=== PATIENT | male | born 1970 ===

== ENCOUNTER 2018-08-20 10:56 | Emergency (ER) | payer MEDICAID ==
[2018-08-20 11:01] VITALS: BMI 23.6
[2018-08-20 11:02] VITALS: BP 123/79; PULSE 108; RESP 20; TEMP 98.4; O2SAT 98
--- NOTE | 2018-08-20 12:05 | ED PDOC ---
Upper Extremity Pain/Injury Time Seen by Provider: 08/20/18 11:58 Chief Complaint (Nursing): Finger,Hand,&Wrist Additional Complaint(s): 47 y/o right-handed male with PMH asthma, hepatitis, and depression presents to the ED c/o laceration of L hand that occurred at 2am this morning. Pt reached into his pocket, where his pocket knife was open, and cut the webspace between the 1st and 2nd digits on his left hand. Bleeding was able to be controlled at home with pressure but he is here today because of concern over the depth of the wound. Unknown last tetanus. Denies numbness, paresthesias, lacerations elsewhere. Past Medical History Reviewed: Historical Data, Nursing Documentation, Vital Signs Vital Signs: Last Vital Signs Temp 98.4 F 08/20/18 11:02 Pulse 108 H 08/20/18 11:02 Resp 20 08/20/18 11:02 BP 123/79 08/20/18 11:02 Pulse Ox 98 08/20/18 11:02 - Medical History PMH: Asthma (PT DENIES), Depression, Hepatitis (Hep C?), Schizophrenia (PT DENIES HX) Denies: Diabetes, HIV, HTN, Seizures, Sexually Transmitted Disease - Family History Family History: States: Unknown Family Hx - Immunization History Hx Tetanus Toxoid Vaccination: (UNOBTAINABLE) Hx Influenza Vaccination: (UNOBTAINABLE) Hx Pneumococcal Vaccination: (UNOBTAINABLE) - Home Medications Home Medications: Ambulatory Orders Medication Instructions Recorded Soft Lens Rinse,Store Solution 2 drop OU TID #1 bottle 04/25/18 [Saline Sensitive Eyes] Cephalexin [Keflex] 500 mg PO Q8H 7 Days #21 capsule 08/20/18 - Allergies Allergies/Adverse Reactions: Allergies Allergy/AdvReac Type Severity Reaction Status Date / Time No Known Allergies Allergy Verified 08/20/18 11:23 Review of Systems ROS Statement: Except As Marked, All Systems Reviewed And Found Negative Constitutional: Negative for: Fever, Chills Eyes: Negative for: Vision Change Cardiovascular: Negative for: Chest Pain, Palpitations Respiratory: Negative for: Cough, Shortness of Breath Gastrointestinal: Negative for: Nausea, Vomiting, Abdominal Pain Musculoskeletal: Positive for: Hand Pain (left hand webspace between 1st and 2nd digits) Skin: Positive for: Other (laceration left hand webspace between 1st and 2nd digits) Neurological: Negative for: Weakness, Numbness, Headache, Dizziness, Other (paresthesias) Psych: Negative for: Anxiety, Depression Physical Exam - Reviewed Nursing Documentation Reviewed: Yes Vital Signs Reviewed: Yes - Physical Exam Appears: Positive for: Well, Non-toxic, No Acute Distress Head Exam: Positive for: ATRAUMATIC, NORMAL INSPECTION, NORMOCEPHALIC Skin: Positive for: Warm, Dry Eye Exam: Positive for: EOMI, Normal appearance, PERRL Neck: Positive for: Normal, Painless ROM Cardiovascular/Chest: Positive for: Regular Rate, Rhythm Respiratory: Positive for: CNT, Normal Breath Sounds Pulses-Radial (L): 2+ Pulses-Radial (R): 2+ Back: Positive for: Normal Inspection Extremity: Positive for: Normal ROM, Tenderness (over laceration in webspace between 1st and 2nd digits), Other (2 lacerations: 4cm in webspace between 1st and 2nd digits, deep to muscle, no tendon involvement; 1.5cm on dorsal webspace, superficial; No presumed tendon involvement of laceration, able to flex and extend against resistance.). Negative for: Deformity Neurologic/Psych: Positive for: Alert, technology support analyst II-XII, Oriented, Gait (steady), Other (full sensation, strength in extremities, including fingers bilaterally. ). Negative for: Motor/Sensory Deficits - ECG O2 Sat by Pulse Oximetry: 98 Medical Decision Making Medical Decision Making: Initial Plan: * Suture repair * Tetanus * Keflex Wound repaired without complication, pt tolerated well. See procedure note. Plan of care discussed with patient, and strict instructions given regarding prescriptions, importance of follow up, and signs to return to Emergency Department, to include wound redness, swelling, tenderness, drainage, fever, chills, worsening hand pain, or any other new/worsening symptoms. Patient verbalizes understanding of discussion. Patient A&Ox3, ambulating with steady gait, stable for discharge home. Repaired laceration was covered in bacitracin and dressed by nursing. Impression: Laceration Plan: * Return in 10-14 days for suture removal * keflex * wound care * work note * Hand followup * Followup with primary doctor/clinic within 2 days * Return to ER for new/worsening symptoms Procedures - Laceration/Wound Repair left hand Wound Length (cm): 4 (2nd, smaller, superficial laceration 2cm, to dorsal webspace) Wound's Depth, Shape: into muscle, linear Wound Explored: no foreign body removed Irrigated w/ Saline (ccs): 100 (also betadine solution soaked) Betadine Prep?: Yes Anesthesia: 1% Lidocaine Volume Anesthetic (ccs): 5 Wound Repaired With: Sutures Suture Size/Type: 4:0, proline (6 - left hand webspace between 1st and 2nd digits), nylon (2 - more superficial laceration dorsal webspace) Number of Sutures: 8 Layer Closure?: Yes Deep Layer Suture Size/Type: 4:0 Number Deep Layer Sutures: 4 (vicryl) Wound Complexity: Intermediate Sterile Dressing Applied?: Yes Splint Applied?: No Disposition - Clinical Impression Clinical Impression: Laceration - Patient ED Disposition Is Patient to be Admitted: No - Disposition Referrals: [facility] [Outside] Dain Ovalles MD [Medical Doctor] - Disposition: Routine/Home Disposition Time: 13:00 Condition: IMPROVED Additional Instructions: Return for suture removal in 10-14 days Keep wound clean, dry, and covered; no soaking Take antibiotic as prescribed Followup with primary doctor or clinic within 2 days Return to ER for any new/worsening symptoms, including signs of infection (wound redness, tenderness, swelling, drainage) Prescriptions: Cephalexin [Keflex] 500 mg PO Q8H 7 Days #21 capsule Instructions: Wound Care (DC) Forms: [facility] (Iranian), [facility] ED School/Work Excuse
[2018-08-20] MEDS: Lidocaine 1% Inj (20ml) IJ ONE (12:07)
[2018-08-20] MEDS ORDERED: Tdap Vaccine 0.5 ml Vial (10-64 yrs) IM ONE (12:11)
[2018-08-20] MEDS: Tdap Vaccine 0.5 ml Vial (10-64 yrs) IM ONE (12:11)
== END 2018-08-20 14:37 | disposition home or self-care (01) ==
LOC: H.ER 10:56
DX: S61.412A Laceration without foreign body of left hand, initial encounter (principal); W26.0XXA Contact with knife, initial encounter; Y92.89 Other specified places as the place of occurrence of the external cause; B19.20 Unspecified viral hepatitis C without hepatic coma; I10 Essential (primary) hypertension